=== PATIENT | female | born 1985 | race African-American/Black ===

== ENCOUNTER 2025-03-13 09:23 | Outpatient (REF) | payer OTHER, SELFPAY ==
--- OUTSIDE RECORDS SUMMARY | 2025-03-13 12:25 | XMS_ITS | Patient Health Record ---
Author Organization [facility] Address [address] [place] [address] Care Team Providers Care Flexible Shaft Winder Name Role Phone Zac Cardona Primary Care Provider Reason For Referral No Information Medications Medication SIG (Take, Route, Frequency, Duration) Notes Start Date End Date Status Mirena 20 MCG/24HR Intrauterine Device Intrauterine *please review for potential update for e-prescription and drug interaction check* inserted 07/2011 Active Social History Social History Additional Details Category Social Info Options Details Tobacco Use: Tobacco Use/Smoking Are you a: nonsmoker Plan Of Treatment No Information Insurance Providers Payer Name Payer Address Payer Phone Subscriber Number Group Number Insured Name Patient Relationship to Insured Coverage Start Date Coverage End Date [facility] [address] [place] [address] [id number] AMBROSEMERCEDES HOROWITZ Self - patient is the insured Medical (General) History Medical History History ICD Code HPV HTN ELIN positive Thyroid nodule/goiter Surgical History Surgery Date(Month/Year) Colposcopy-benign 09/2010
[2025-03-13 13:07] LABS: Appearance Urine Clear; Glucose Urine UA Negative (Negative); PH 5.5 (5.0-9.0); Specific Gravity - Urine 1.025 (1.005-1.025); UMIC TRIGGER UACC YES
[2025-03-13 13:53] LABS: Microalbum/Creatinine Ratio Ur 75.9 ug/mg cr (<30)
[2025-03-13 14:07] LABS: MANUAL DIFF FLAG NO
[2025-03-13 14:18] LABS: Hematocrit 37.2 % (37.0-47.0); Hemoglobin 12.7 g/dl (12.0-16.0); Imm Gran Abs Auto 0.01 X10*3/uL (0.00-0.03); Imm Gran Pct Auto 0.1 % (0.0-0.4); Lymphocytes Absolute Auto 1.8 X10*3/uL (1.2-4.9); Mean Corpuscular HGB Conc 34.1 g/dl (31.0-35.0); Mean Corpuscular Hemoglobin 30.1 pg (27.0-33.0); Mean Corpuscular Volume 88.2 fL (80.0-98.0); NRBC Abs Auto 0.000 X10*3/uL (0.0-0.012); NRBC Pct Auto 0.0 /100WBC (0.0-0.2); Platelet Count 393 X10*3/uL (160-400); Red Blood Count 4.22 X10*6/uL (4.20-5.50); White Blood Count 6.8 X10*3/uL (4.8-10.8)
[2025-03-13 18:48] LABS: Alanine Aminotransferase 23 U/L (0-31); Albumin Level 4.9 g/dL (3.5-5.0); Alkaline Phosphatase 69 U/L (39-117); Anion Gap 13 (12-20); Aspartate Amino Transferase 23 U/L (5-31); Blood Urea Nitrogen 10 mg/dL (9-16); Calcium 9.3 mg/dL (8.4-10.2); Carbon Dioxide 27 mmol/L (22-29); Chloride 104 mmol/L (96-108); Cholesterol 174 mg/dL (<200); Estimated Glomerular Filt Rate > 60; HDL Cholesterol 33 mg/dL (>40); Magnesium 2.2 mg/dL (1.6-2.6); Potassium 3.7 mmol/L (3.3-5.1); Sodium 140 mmol/L (135-145); Total Protein 8.0 g/dL (6.5-8.0); Triglycerides 149 mg/dL (<150)
[2025-03-13 19:19] LABS: Folate 12.1 ng/mL (> or = 4.0); Vitamin B12 295 pg/mL (200-900)
[2025-03-14 05:07] LABS: Syphilis Screen Nonreactive (Nonreactive)
[2025-03-14 05:29] LABS: HBS Num1 118.49 mIU/mL (0-7.99); HBsAGNum1 0.61 S/CO (0.00-0.99); HIV Num 1 0.04 S/CO (0.00-0.99); Hepatitis B Surface Antigen Negative (Negative); ~HepC Num1 0.12 S/CO (0.00-0.79); ~Hepatitis B Surface Antibody REACTIVE (Nonreactive); ~Hepatitis C Antibody Nonreactive (Nonreactive)
[2025-03-18 15:12] LABS: VITAMIN D (1,25 OH) D3 76 pg/mL; Vit D (1,25-Dihydroxy) Total 76 pg/mL (18-72); Vitamin D (1,25 OH) D2 <8 pg/mL
== END 2025-03-13 09:24 | disposition home or self-care (01) ==
LOC: HO.HKASLDS 09:23
PROVIDERS: PCP Student in an Organized Health Care Education/Training Program; Visit Provider Student in an Organized Health Care Education/Training Program
DX: I10 Essential (primary) hypertension (principal); E78.5 Hyperlipidemia, unspecified; E11.9 Type 2 diabetes mellitus without complications; E66.811 Obesity, class 1; L83 Acanthosis nigricans; Z23 Encounter for immunization; Z68.33 Body mass index [BMI] 33.0-33.9, adult
CPT/HCPCS: 36415; 80053; 80061; 81001; 82043; 82570; 82607; 82652; 82746; 83036; 83735; 84443; 85025; 86706; 86780; 86803; 87340; 87389; 90471; 90656; 96127

== ENCOUNTER 2025-03-13 09:23 | Outpatient (AMB) | payer OTHER, SELFPAY ==
--- NOTE | 2025-03-13 09:25 | MHC.PC.OV ---
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 Accompanied by: Self / Same As Patient Allergies No Known Allergies Allergy (Verified 03/13/25 09:30) Medication List - Last Reconciled 03/13/25 by Solo Abreu MD atorvastatin (Lipitor) 20 mg PO BEDTIME levonorgestrel (Mirena) intrauterine lisinopril 20 mg PO DAILY metformin 500 mg PO BID Tobacco use date assessed: 03/13/25 Dental Screening Dental Screen Date: 03/13/25 Did you have a dental visit in the last 12 months?: Yes Was dental information given to patient?: Patient has dentist HPI HPI Comments History of Present Illness Details History of Present Illness The patient is a 39-year-old individual presenting to [facility] primary [facility] and for management of hypertension and prediabetes. Type 2 Diabetes: The patient has a history of gestational diabetes during a prior , which persisted after delivery. Recent laboratory results indicated a hemoglobin A1c of 6.2%. The patient previously took metformin and reports it helped with weight loss. There is a family history of diabetes. Essential Hypertension: The patient reports a history of high blood pressure, for which medication was taken after the patient's last child was born, leading to regulation of blood pressure. A medication was prescribed last year, but the patient cannot recall the name, suggesting it might have been lisinopril or hydrochlorothiazide, and is not currently taking it. There is a family history of hypertension. Hyperlipidemia: The patient was previously on a statin medication for cholesterol, possibly atorvastatin, but discontinued it and requires new lab panels. Contraception Management: The patient has had a Mirena IUD in place for four years, reporting no issues and amenorrhea. Surgical History: - Denies any history of surgeries. Medications: - The patient is not currently taking any prescription medications. - The patient has a Mirena IUD, placed 4 years ago. Social History: - Denies smoking. - Denies drinking alcohol. - Denies use of recreational drugs. - Reports exercising frequently. - Obstetric history: The patient has had five pregnancies and has three living children. - Contraception: The patient has a Mirena IUD in place. Family History: - Hypertension - Diabetes Mellitus Diagnostic Results: - Hemoglobin A1c: 6.2% Past Medical History - Prediabetes, with a recent hemoglobin A1c of 6.2%. - History of gestational diabetes. - History of hypertension, previously treated post-. - History of hyperlipidemia, previously treated with a statin. - Obstetric history includes five pregnancies with three living children. - Has a Mirena IUD, placed four years ago. Health Maintenance - Will place a referral for a screening mammogram. - The patient is to follow up in two weeks to review lab results. - Prescriptions will be sent to [facility] pharmacy. [facility] Medical History (Updated 03/13/25 @ 10:01 by Solo Abreu MD) Insulin resistance Acanthosis nigricans Class 1 obesity Diabetes type 2 Hypertension Family History (Updated 03/13/25 @ 09:32 by Christina Jeff CMA) Mother Diabetes HTN (hypertension) Obesity Father Diabetes HTN (hypertension) Obesity Social History Housing: House Patient Tobacco Use Status: Never used Tobacco service: Yes Current occupational status: employed Cognitive needs: No Hearing needs: No Vision needs: Yes (rx glasses) Questionnaire PHQ-9 Over the last 2 weeks, how often have you been bothered by any of the following problems? 1. Little interest or pleasure in doing things: not at all 2. Feeling down, depressed, or hopeless: not at all 3. Trouble falling or staying asleep, or sleeping too much: not at all 4. Feeling tired or having little energy: not at all 5. Poor appetite or overeating: not at all 6. Feeling bad about yourself - or that you are a failure or have let yourself or your family down: not at all 7. Trouble concentrating on things, such as reading the newspaper or watching television: not at all 8. Moving or speaking so slowly that other people could have noticed. Or the opposite - being so fidgety or restless that you have been moving around a lot more than usual: not at all 9. Thoughts that you would be better off or of hurting yourself in some way: not at all Total score: 0 Source: Developed by Drs. Tommie Mercado, Gwendolyn Carvalho, Bart Samuels and colleagues, with an educational pedrito from [employer]. Thrive Questionnaire Date Thrive assessed: 03/13/25 I am a: Patient What is your living situation today?: I have a steady place to live Within the past 12 months, did the food you bought not last and you didn't have the money to get more?: Never true Within the past 12 months, did you worry whether your food would run out before you got money to buy more?: Sometimes True Do you have trouble paying for medicines?: No Do you have trouble getting transportation to medical appointments?: No Do you have trouble paying your heating and electricity bill?: No Do you have trouble taking care of your child, family member or friend?: No Do you have trouble with day-to-day activities such as bathing, preparing meals, shopping, managing finances, etc.?: No Are you currently unemployed and looking for a job?: No Are you interested in more education?: No Please select the resources that you would like help with: None Currently or been in a relationship where the following occur: No concerns reported THRIVE Score: 1 AUDIT C Alcohol Use Questionnaire (AUDIT-C) 1. How often do you have a drink containing alcohol?: Monthly or less 2. How many drinks containing alcohol do you have on a typical day when you are drinking?: 1 or 2 3. How often do you have six or more drinks on one occasion?: Never Total Score: 1 CAPRI-7 AMB Questionnaire CAPRI-7 Date CAPRI - 7 assessed: 03/13/25 Feeling nervous, anxious, or on edge: 0 = Not at all Not being able to stop or control worryin = Not at all Worrying too much about different things: 0 = Not at all Trouble relaxin = Not at all Being so restless that it is hard to sit still: 0 = Not at all Becoming easily annoyed or irritable: 0 = Not at all Feeling afraid as if something awful might happen: 0 = Not at all Total CAPRI-7 score (0-4 normal; 5-9 mild; 10-14 moderate; 15-21 severe): 0 Source: Developed by Drs. Tommie Mercado, Gwendolyn Carvalho, Bart Samuels and colleagues, with an educational pedrito from [employer]. Review of Systems Narrative Review of Systems - Constitutional: Reports good sleep. - Genitourinary: Reports normal urination and bowel movements. - Endocrine: Reports amenorrhea secondary to Mirena IUD. 10-point ROS reviewed and negative except as noted in HPI Physical exam (Primary Care) Vital Signs: Last Vital Signs Temp 98.1 F 03/13/25 09:33 Pulse 78 03/13/25 09:33 BP 174/100 H 03/13/25 09:33 Pulse Ox 100 03/13/25 09:33 Oxygen Delivery Method Room Air 03/13/25 09:33 BMI result Body Mass Index 33.8 Tobacco/Smoking Status: Tobacco use Status Tobacco use date assessed 03/13/25 03/13/25 09:27 Patient Tobacco Use Status Never used Tobacco 03/13/25 09:27 PHQ-9: PHQ-9 Score PHQ-9: Total score 0 03/13/25 09:49 Thrive Assessment: Date of Thrive Assessment Date Thrive assessed 03/13/25 03/13/25 09:27 Currently or been in a relationship where the following occur: No concerns reported Narrative Physical Exam General: Well-appearing, in no acute distress. Vital signs: Within normal limits. HEENT: Normocephalic, atraumatic. PERRLA, EOMI. Conjunctiva clear, sclera anicteric. Oropharynx clear, mucous membranes moist. TMs intact bilaterally. Neck: Supple, no lymphadenopathy, no thyromegaly, no JVD or carotid bruits. Cardiovascular: RRR, normal S1/S2, no murmurs, rubs, or gallops. Peripheral pulses 2+ and symmetric. No edema. Respiratory: Lungs clear to auscultation bilaterally, no wheezes, rales, or rhonchi. Normal effort. Abdomen: Soft, non-tender, non-distended. Normoactive bowel sounds. No hepatosplenomegaly, no masses. MSK: Full range of motion, no joint swelling or deformity. Normal gait. Skin: Warm, dry, intact. No rashes, lesions, or pallor. Some darkening noted, consistent with acanthosis nigricans. Neuro: Alert and oriented x3. Cranial nerves II-XII intact. Strength 5/5 throughout. Sensation intact. Reflexes 2+ symmetric. Normal coordination and gait. Psych: Appropriate mood and affect. Normal judgment and insight. Office Procedures Flu Questionnaire Does the patient have a severe egg allergy?: No Does the patient have severe life threatening allergies?: No Does the patient have a fever or illness today?: No Has the patient ever had Guillain-[place] Syndrome?: No Has the patient ever had any past reaction to a flu shot?: No Results AMB Hemoglobin A1c AMB Hemoglobin A1c 6.2 % Last Edit by Christina Jeff CMA on 03/13/25 09:53 Immunizations Fluarix [id number] (PF) 45 mcg (15 mcg x 3)/0.5 mL IM syringe Performing Provider: Solo Abreu MD Performing Location: [facility] Administered by: Christina Jeff CMA on 03/13/25 09:42 Dose Route Admin Location Dispensed Lot Number Expiration Date NDC Evaporator Repairer 0.5 mL IM Left Deltoid 0.5 mL [id number] 10/16/25 [id number] [employer] VIS Given Date VIS Provided VIS Publication Date 03/13/25 Single Vaccine 24 Eligibility Eligibility Date Funding Source Not [facility] Eligible 03/13/25 Private Coding Level of Care Code New Pt Level 4 (84127) Diagnoses Hypertension I10 Diabetes type 2 E11.9 Class 1 obesity E66.811 Acanthosis nigricans L83 Insulin resistance E88.819 Assessment & Plan Assessment & Plan (1) Hypertension: Code(s): I10 - Essential (primary) hypertension Category: Medical (2) Diabetes type 2: Code(s): E11.9 - Type 2 diabetes mellitus without complications Category: Medical (3) Class 1 obesity: Code(s): E66.811 - Obesity, class 1 Category: Medical (4) Acanthosis nigricans: Code(s): L83 - Acanthosis nigricans Category: Medical (5) Insulin resistance: Code(s): E88.819 - Insulin resistance, unspecified Category: Medical Plan Consent The patient verbally consented to the proposed treatment plan, including new medications, laboratory testing, and specialist referrals, after a discussion of the rationale and goals of care. Patient was informed and verbally consented to the use of an ambient scribe for clinic note documentation during this visit. Plan 1. Type 2 Diabetes - Will initiate metformin 500 mg to be taken twice daily. - Will order laboratory studies including a CBC, CMP, magnesium, urinalysis for protein, a thyroid panel, hepatitis B & C, HIV, a lipid panel, vitamin B12, folate, and vitamin D. - Discussed monitoring vitamin B12 levels as they can decrease with metformin use. - A referral to podiatry will be placed for an annual foot exam. - The patient confirms a recent ophthalmology exam was normal. 2. Essential Hypertension - Will prescribe lisinopril 20 mg once daily. 3. Hyperlipidemia - Explained that patients with diabetes or prediabetes should be on a statin for cardiovascular protection. - Will prescribe atorvastatin 20 mg once daily. - Noted the anti-inflammatory benefits and its role in reducing cardiac risk factors. Discussion Notes I discussed with the patient that the hemoglobin A1c of 6.2 signifies prediabetes, increasing the risk for type 2 diabetes, especially given the history of gestational diabetes. We agreed to initiate metformin, which the patient tolerated well in the past and found effective for weight loss. I explained the guideline-based recommendation for starting a statin medication (atorvastatin) in patients with prediabetes to lower cardiovascular risk, regardless of current cholesterol levels. We also decided to restart medication for hypertension with lisinopril. I outlined the plan for comprehensive lab work to establish a baseline and monitor for any medication side effects, such as vitamin B12 deficiency with metformin. We discussed the importance of preventative care, and I will place referrals for a mammogram and a podiatry foot exam. The patient agreed with the plan and will return in two weeks to review the results. Patient Instructions - Take metformin 500 mg, one pill by mouth twice per day, for your blood sugar. - Take lisinopril 20 mg, one pill by mouth once per day, for your blood pressure. - Take atorvastatin 20 mg, one pill by mouth once per day, to protect your heart. - Please go to the lab to have blood and urine tests completed. - You will be referred for a mammogram and a podiatry (foot doctor) appointment for your annual exams. - Your prescriptions have been sent to [facility]. - Please schedule a follow-up appointment in two weeks to review your lab results. Medical Decision Making The patient is a 39-year-old individual presenting to [facility] with multiple metabolic concerns. The diagnosis of prediabetes is confirmed by a hemoglobin A1c of 6.2%, and is complicated by a history of gestational diabetes, placing the patient at high risk for progression to type 2 diabetes. Physical exam findings of acanthosis nigricans are consistent with insulin resistance. Initiation of metformin is indicated for glycemic control, and the patient has tolerated it well previously. Due to the prediabetes diagnosis, initiation of a low-dose statin (atorvastatin) is recommended for primary cardiovascular prevention per clinical guidelines. The patient's history of hypertension warrants restarting antihypertensive therapy, and lisinopril was chosen. Comprehensive baseline labs will assess renal and hepatic function prior to medication titration and screen for comorbidities and potential medication side effects, such as B12 deficiency from metformin. Preventative care measures, including referrals for a mammogram and a diabetic foot exam, are being initiated to provide comprehensive care. A follow-up in two weeks will allow for review of laboratory results and assessment of the patient's response to the new therapeutic regimen. Total Time Statement 30 min Total time spent caring for the patient today includes pre-visit chart review, documentation, review of laboratory and diagnostic imaging results, medication reconciliation, medically necessary evaluation, counseling on diagnoses, care coordination, ordering appropriate tests and medications, review of tests performed by other providers, reporting test results to the patient, and communication with other healthcare providers. Orders: Orders Influenza [id number] Immunization Today Z23 - Encounter for immunization AMB Hemoglobin A1c Today Z13.9 - Encounter for screening, unspecified Microalbumin, Random (w Creat) Today Z13.9 - Encounter for screening, unspecified Hepatitis B Surface Antigen Today Z13.9 - Encounter for screening, unspecified Syphilis Screen Today Z13.9 - Encounter for screening, unspecified TSH reflex Free T4 Today Z13.9 - Encounter for screening, unspecified HIV Ab/Ag Today Z13.9 - Encounter for screening, unspecified Lipid Panel Today Z13.9 - Encounter for screening, unspecified Vitamin B12 and Folate Today Z13.9 - Encounter for screening, unspecified Magnesium Today Z13.9 - Encounter for screening, unspecified Vitamin D 1,25 dihydroxy Today Z13.9 - Encounter for screening, unspecified Hepatitis B Surface Antibody Today Z13.9 - Encounter for screening, unspecified Complete Blood Count Auto Diff Today Z13.9 - Encounter for screening, unspecified Comprehensive Met. Panel Today Z13.9 - Encounter for screening, unspecified Hepatitis C Antibody Today Z13.9 - Encounter for screening, unspecified UA CC w/rflx Micro + Cult Today Z13.9 - Encounter for screening, unspecified Hemoglobin A1c Today Z13.9 - Encounter for screening, unspecified MM screening mammo BI Today Z12.31 - Encounter for screening mammogram for malignant neoplasm of breast Referrals Podiatry Referral E11.9 - Type 2 diabetes mellitus without complications, Z13.9 - Encounter for screening, unspecified Medications: New metformin 500 mg PO BID 180 tabs 0RF atorvastatin (Lipitor) 20 mg PO BEDTIME 90 tabs 0RF lisinopril 20 mg PO DAILY 30 tabs 0RF I10 - Essential (primary) hypertension
[2025-03-13 09:33] VITALS: BP 174/100; PULSE 78; TEMP 36.7; O2SAT 100; BMI 33.8
--- OUTSIDE RECORDS SUMMARY | 2025-03-13 10:42 | XMS_ITS | Clinical Summary ---
Author Organization [employer] Formerly [facility] Address [address] [address] Phone Care Team Providers Care Shift Mechanic Name Role Phone Unavailable Primary Care Provider Unavailabl e Allergies No known active allergies Medications cholecalciferol 1,000 unit tablet Take 1,000 Units by mouth daily. Active ascorbic acid (VITAMIN C ORAL) Take by mouth. Active metFORMIN (GLUCOPHAGE) 500 MG tabletIndications:T ype 2 diabetes mellitus without complication, without long-term current use of insulin TAKE 1 TABLET(500 MG) BY MOUTH TWICE DAILY WITH MEALS 180 tablet 3 4 Active atorvastatin (LIPITOR) 20 MG tabletIndications:H yperlipidemia, unspecified hyperlipidemia type TAKE 1 TABLET(20 MG) BY MOUTH DAILY 90 tablet 3 4 Active Active Problems Problem Noted Date Diagnosed Date Diet controlled gestational diabetes mellitus (GDM) in third trimester 09/03/2020 Assessment & Plan (09/10/2020 1:37 PM EDT): ~34 yr old female with gestation diabetes in her last trimester . She is doing well with diet and home glucose monitoring. No indication to start insulin at this time. plan:~To continue diet. Discussed the risk of GDM in further pregnancies and developing type 2 DM. Advised to continue diet even after delivery. To see her in 2 weeks. Assessment & Plan (09/03/2020 1:12 PM EDT): ~34 yr old female with gestation diabetes in her last trimester . She is doing well with diet and home glucose monitoring. No indication to start insulin at this time. plan:~To continue diet. Refer to RD. To bring readings and meter at all visits. Obtain HbA1c today. Discussed the risk of GDM in further pregnancies and developing type 2 DM. Advised to continue diet even after delivery. To see her in 1 week. Vitamin D deficiency 07/21/2019 Prediabetes 01/03/2019 Assessment & Plan (01/05/2023 8:58 AM EDT): Monitors her blood glucose regularly and has elevated readings. Had gestational diabetes in the past and she was prediabetic before conceiving and after delivery. Had tried discontinuing sugar completely, without benefits. Father and grandmother had diabetes. Ordered Hemoglobin A1c. Advised taking a healthy, low carb and low fat diet and exercise. Family history of diabetes mellitus 11/07/2018 Abnormal cervical Papanicolaou smear 05/16/2015 Overview (05/16/2015): Her pap smear history is as follows: 09/01/2010 ASC-[facility] (Outside [facility]) 01/23/2015 Normal (Outside [facility]) Her HPV history is as follows: 01/23/2015 pos type 16 (Outside [facility]) Further evaluation and management have been as follows: 03/25/2015 biopsy of cervix SILLG ([facility]) SILHG @ 6 (Outside [facility]) 03/25/2015 endocervical curettage Teresa Diff to Grade ([facility]) SIL[facility] (Outside [facility]) Contraception management 01/23/2015 Encounter for general adult medical examination with abnormal findings 01/23/2015 Assessment & Plan (01/07/2024 6:34 AM EDT): Cervical cancer screening: Up-to-date. Had a normal Pap smear in 09/[address] Marquez. Advised her to obtain records for me to review. Breast cancer screening: She has her mammograms scheduled for tomorrow. Depression screening: No depression symptoms or mood changes. Immunizations: Ordered to administer the Tdap, influenza and COVID-19 vaccines today. Exercise: She does a lot of walking at work and goes for walks in her neighborhood on weekends. She mentions that her job involves physical activity. Family history: No changes. Reviewed. Assessment & Plan (01/05/2023 8:58 AM EDT): Family history: No recent change in family history. Pap smear screening: Due. Her lead nurse retired. Ophthalmology screening: Due. 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 Immunization: Due for influenza vaccine. Ordered and administered Influenza Vaccine (2yr up) Quadrivalent MDCK w/Preservatives IM during today's visit. Screening labs:Due for screening labs. Ordered as below: Human papilloma virus (HPV) infection 01/23/2014 Obesity 09/01/2010 Elevated antinuclear antibody (ELIN) level 2009 Benign essential hypertension 02/11/2009 Screening for malignant neoplasm of cervix 02/11 Assessment & Plan (01/05/2023 8:58 AM EDT): She's due for a pap smear screening. Ambulatory referral to External [employer]VEL[employer] FOLDING MACHINE ADJUSTER-provided. Thyroid nodule 11/30/2008 Assessment & Plan (09/10/2020 1:33 PM EDT): Stable over 10 years. May follow clinically. No regular US is needed unless change. Free T4 is low at 0.7 with normal TSH (08/2020). Will follow free T4 by direct dialysis. Assessment & Plan (09/03/2020 1:07 PM EDT): Stable over 10 years. May follow clinically. No regular US is needed unless change. Resolved Problems Problem Noted Date Diagnosed Date Resolved Date Normal pelvic exam 11/07/2018 9 Other microscopic hematuria 03/05/2009 07/21/2019 Thyroid cyst 05/04/2008 09/03/2020 Goiter 10/24/2007 09/03/2020 Immunizations Immunization Administration Dates Next Due COVID-19 (Pre-02/08) Moderna Vaccine, mRNA, PF 03/21/2021,07/15/2020,06/18/2020 COVID-19 Pfizer Comirnaty Vaccine 12+ 01/06/2024 INFLUENZA TRIVALENT MDCK w/PRESERVATIVE IM 01/06/2024 INFLUENZA, SPLIT VIRUS, TRIV ALENT W/ PRESERVATIVE IM 02/05/2016,01/23/2015,01/16/2014,2012 Influenza Quadrivalent MDCK w/Preservative IM 01/04/2023,01/01/2022,01/03/2021 Influenza Quadrivalent Prese rvative Free IM 01/07/2019,12/27/2017,02/02/2017 Influenza Quadrivalent w/ Preservative IM 02/02/2017 Influenza, Unspecified Formulation 01/08/2020, Tdap 01/06/2024,12/06/2012 Family History Medical History Relation Comments Multiple sclerosis Brother Diabetes Father Hypertension Father Colon cancer Maternal Grandmother Diabetes mellitus Mother FH: Diabetes m ellitus Hypertension Mother FH: Hypertension Hyperlipidemia Sister Relation Status Comments Brother Father Maternal Grandmother Mother Sister Social History Tobacco Use Types Packs/Day Years Used Date Smoking Tobacco: Never Smokeless Tobacco: Never Alcohol Use Standard Drinks/Week Comments No 0 (1 standard drink = 0.6 oz pur e alcohol) Child or Family Care Answer Date Record ed Do you have problems with on e of the following making it difficult for you to work, study, or receive health care? No 10/02/2023 Education Answer Date Recorded Are you interested in help w ith more adult education (for example, completing high school, GED, job training, learning the Hebrew language, technical skills, or developing parenting skills)? No 10/02/2023 Are you concerned about learning? Not on file 10/02/2023 No 10/02/2023 Yes 10/02/2023 Food Answer Date Recorded Within the past 6 months we worried whether our food would run out before we got money to buy more. Never True 10/02/2023 Within the past 6 months the food we bought just didn't last and we didn't have enough money to get more. Never True Residential Stability Answer Date Recor ded What is your housing situation today? I have james sing 10/02/2023 How many times have you move d in the past 12 months? Zero (I did not move) 10/02/2023 Paying for Meds Answer Date Recorded Do you have trouble paying for medicines? No 10/02/2023 Paying Utility Bills Answer Date Record ed Do you have trouble paying your heating or elect ricity bill? No 10/02/2023 Transportation Answer Date Recorded Has the lack of transportati on kept you from medical appointments or from getting medications? No 10/02/2023 Unemployment Answer Date Recorded Are you currently unemployed or working on a part-time or temporary basis, and looking for work? No 10/02/2023 Digital Access Answer Date Recorded No 10/02/2023 Yes 10/02/2023 Do you have reliable internet access at home? Ye s 10/02/2023 Do you have a device (e.g., phone, tablet, computer) with a working camera? Yes 10/02/2023 Intimate Partner Violence Answer Date R ecorded Denied Basic Needs Not on file 12/30/2023 In the past 12 months have y ou been in a relationship with a person who hurts, threatens, or tries to control you? No 12/30/2023 Worried food would run out Not on file 12/29 In the past 12 months have y ou been in a relationship with a person who hurts, threatens, or tries to control you? No 12/30/2023 Comments No Sex and Gender Information Value Date Recorded Sex Assigned at Female 12/13/2019 4:54 PM EDT Legal Sex Female 4:11 PM EST Gender Identity Female 12/13/2019 4:54 PM EDT Sexual Orientation Choose not to disclose 2019 4:54 PM EDT Sexual Orientation Straight 12/13/2019 4: 54 PM EDT Last Filed Vital Signs Vital Sign Reading Time Taken Comments Blood Pressure 124/86 01/06/2024 8:18 AM EDT Pulse 83 01/06/2024 8:18 AM EDT Temperature 37.3 C (99.2 F) 10/25/2022 9:39 AM EDT Respiratory Rate 18 12/30/2021 7:42 AM EDT Oxygen Saturation 99% 01/06/2024 8:18 AM EDT Inhaled Oxygen Concentration - - Weight 95.6 kg (210 lb 12.8 oz) 01/06/2024 8:18 AM EDT Height 165.1 cm (5' 5 ) 01/06/2024 8:18 AM EDT Body Mass Index 35.08 01/06/2024 8:18 AM EDT Plan of Treatment Health Maintenance Due Date Last Done Comments PAP SMEAR 01/12/2019 01/13/2016, 01/13/2016 BLOOD PRESSURE 07/05/2024 01/06/2024 INFLUENZA VACCINE (#1) 2024 , 01/04/2023, 01/01/2022, Additional history exists COVID-19 VACCINE ( season) 2024 01/06/2024, 03/21/2021, 07/15/2020, Additional history exists DEPRESSION SCREENING 12/29/2024 12/30/2023, 05/20/19 16 CREATININE LEVEL 02/27/2025 02/28/2024, 10/2023, 08/06/2022, Additional history exists MAMMOGRAM 01/12/2026 01/13/2024 SCREENING FOR DIABETES 02/27/2027 02/28/2024, 2023 Adult Td,Tdap Booster 01/05/2034 01/06/2024, 013 HEPATITIS C SCREENING Completed 12/29/2018, 019 HIV ONE-TIME SCREENING (18-65 YEARS) Completed 12/29/2018 SMOKING STATUS SCREENING (Once After 26 Yrs) Completed 12/30/2021 HEPATITIS A VACCINES Aged Out No long er eligible based on patient's age to complete this topic HIB VACCINES Aged Out No longer eligi ble based on patient's age to complete this topic MENINGOCOCCAL VACCINES (ACWY) Aged Out No longer eligible based on patient's age to complete this topic MENINGOCOCCAL VACCINES (B) Aged Out N o longer eligible based on patient's age to complete this topic PNEUMOCOCCAL VACCINES (0-49 years) Aged Out No longer eligible based on patient's age to complete this topic Medical Devices Not on file Procedures Procedure Name Priority Date/Time Associated Diagnosis Comments [facility] Routine 02/28/2024 8:42 AM EST Elevated BP without diagnosis of hypertension BI MAMMOGRAM SCREENING WITH TOMOSYNTHESIS WITH CAD (BILATERAL) 01/13/2024 10:38 AM EDT HEPATITIS C ANTIBODY, QUALITATIVE Routine 12/29/2018 7:40 AM EDT Routine screening for STI (sexually transmitted infection) PAP TEST Routine 01/13/2016 12:00 AM EDT from Last 3 Months or Most Recently Relevant to Health Maintenance Results * [facility] (02/28/2024 8:42 AM EST) WBC 7.15 4.00 - 11.00 K/uL [facility] RBC 4.19 4.00 - 5.20 M/uL [facility] HGB 12.5 12.0 - 16.0 g/dL [facility] HCT 37.3 36.0 - 46.0 % [facility] PLT 343 150 - 450 K/uL [facility] MCV 89.0 80.0 - 100.[address] [facility] MCH 29.8 27.0 - 31.[address] [facility] MCHC 33.5 32.0 - 36.0 g/dL [facility] RDW 12.6 11.5 - 14.5 % [facility] MPV 10.3 8.4 - 12.[address] [facility] NRBC 0.00 0.00 /[address] [facility] ABSOLUTE NRBC 0.00 0.00 K/uL [facility] DIFF METHOD Auto MASS GEN [facility] NEUTS 65.7 48.0 - 76.0 % [facility] LYMPHS 26.7 18.0 - 41.0 % [facility] MONOS 6.3 4.0 - 11.0 % [facility] EOS 0.7 0.0 - 5.0 % [facility] BASOS 0.3 0.0 - 1.5 % [facility] % IMMATURE GRANS 0.3 0.0 - 0.9 % [facility] ABSOLUTE NEUTS 4.70 1.92 - 7.60 K/uL [facility] ABSOLUTE LYMPHS 1.91 0.72 - 4.10 K/uL [facility] ABSOLUTE MONOS 0.45 0.16 - 1.10 K/uL [facility] ABSOLUTE EOS 0.05 0.00 - 0.50 K/uL [facility] ABSOLUTE BASOS 0.02 0.00 - 0.15 K/uL [facility] ABS IMMATURE GRANS 0.02 0.00 - 0.09 K/uL [facility] SODIUM 138 136 - 145 mmol/L [facility] POTASSIUM 3.9 3.5 - 5.1 mmol/L [facility] CHLORIDE 107 98 - 110 mmol/L [facility] CO2 28 21 - 32 mmol/L [facility] BUN 8 7 - 18 mg/dL [facility] CREATININE 0.70 0.5 - 1.3 mg/dL [facility] GLUCOSE 106 74 - 106 mg/dL [facility] ALBUMIN 4.2 3.0 - 4.5 g/dL [facility] TOTAL PROTEIN 7.8 6.4 - 8.2 g/dL [facility] CALCIUM 8.9 8.5 - 10.1 mg/dL [facility] ALKALINE PHOSPHATASE 68 46 - 130 U/L [facility] TOTAL BILIRUBIN 0.5 0.2 - 1.1 mg/dL [facility] AST 16 15 - 37 U/L [facility] ALT 25 13 - 61 U/L [facility] EGFR 112 >59 mL/min/1.7 3m2 [facility] Comment:Estimated glomerular filtration rate calculated using the CKD-EPI refit equation. TSH 1.52 0.51 - 6.27 uIU/mL [facility] Comment: Euthyroid range 0.51-6.270 muIU/mL. Values above 6.270 muIU/mL suggust hypothyroid states. Values between 0.01-0.51 muIU/mL may be on a thyroidal or non thyroidal basis and require further evaluation. Values above 6.270 muIU/mL suggust hypothyroid states. Blood 02/28/2024 8:42 AM EST 02/28/2024 8:50 AM EST us Zac Cardona MD LAB BLOOD ORDERABLES Final R esult Performing Organization Address City/State/[facility] Co de Phone Number [id number] [place] [address] * Mammogram Screening With Tomosynthesis With CAD (Bilateral) (01/13/2024 10:38 AM EDT) Anatomical Region Laterality Modality Breast Left, Breast Right, Breast Bilateral Bila teral Breast Screening 01/13/2024 10:3 8 AM EDT Narrative 01/13/2024 10:42 AM EDT [facility] [address] [place] [address] Mammography Report Signed Patient: Mercedes Madrid MR#: [id number] : 1985 Acct:[id number] Age/Sex: 38 / F ADM Date: 01/07/24 Loc: MAMMO.[facility] Attending Dr: Zac Cardona MD Ordering Physician: Zac Cardona MD Results: 1 BIRA D 1 Date of Service: 01/07/24 Follow Up: 12 MONTH FOLLOW UP Procedure(s): MM tomosynthesis screening BI Accession Number(s): [id number] cc: Zac Cardona MD [facility] Patient name: Mercedes Madrid Exam: MM tomosynthesis screening BI Technique: Screening mammogram with bilateral digital breast tomosynthesis and R2 CAD review. Procedure Date Time: 01/07/2024 9:17:14 AM Indication: Base Line for routine screening. Comparison: Comparison is made to patient's prior imaging. BILATERAL MAMMOGRAM: Density: The breasts are heterogeneously dense, which may obscure small masses. Masses: No suspicious masses. Calcifications: No suspicious calcifications. Architectural Distortion: None. Asymmetry: No suspicious asymmetry. IMPRESSION: No mammographic evidence of malignancy. BIRADS: 1 - NEGATIVE ONE YEAR FOLLOW-UP NORMAL LETTER SENT TO PATIENT Patient to receive Density letter. Signed by Derek Amado MD on 01/13/2024 10:39 AM. Dictated By: Derek Amado MD Signed By: 01/13/24 1039 DD/ 1038 TD/TT: Corporate Sales Representative: BRAYAN Confidentiality Notice: The information contained in this facsimile may be privileged and confidential. It is intended only for the use of the individual or entity to whom it was sent. If the recipient of this transmittal is not the intended recipient, employee, or agent responsible to deliver it to the intended recipient, any dissemination, distribution, or copying of this communication is strictly prohibited. If you have received this communication in error, please notify us immediately by telephone, and return the original message to us at the above address via [employer]. Procedure Note Derek Amado MD - 01/13/2024 [facility] [address] [place] [address] Mammography Report Signed Patient: Mercedes MadridMR#: [id number] : 1985Acct:[id number] Age/Sex: 38 / FADM Date: 01/07/24 Loc: MAMMO.[facility] Attending Dr: Zac Cardona MD Ordering Physician: Zac Cardonaesults: 1 BIRA D 1 Date of Service: 01/07/24Follow Up: 12 MONTH FOLLOW UP Procedure(s): MM tomosynthesis screening BI Accession Number(s): [id number] cc: Zac Cardona MD [facility] Patient name: Mercedes Madrid Exam: MM tomosynthesis screening BI Technique: Screening mammogram with bilateral digital breasttomosynthesis and R2 CAD review. Procedure Date Time: 01/07/2024 9:17:14 AM Indication: Base Line for routine screening. Comparison: Comparison is made to patient's prior imaging. BILATERAL MAMMOGRAM: Density: The breasts are heterogeneously dense, which may obscure smallmasses. Masses: No suspicious masses. Calcifications: No suspicious calcifications. Architectural Distortion: None. Asymmetry: No suspicious asymmetry. IMPRESSION: No mammographic evidence of malignancy. BIRADS: 1 - NEGATIVE ONE YEAR FOLLOW-UP NORMAL LETTER SENT TO PATIENT Patient to receive Density letter. Signed by Derek Amado MD on 01/13/2024 10:39 AM. Dictated By: Derek Amado MD Signed By:01/13/24 1039 DD/ 1038 TD/TT: Corporate Sales Representative: BRAYAN Confidentiality Notice: The information contained in this facsimile may beprivileged and confidential. It is intended only for the use of the individual or entityto whom it was sent. If the recipient of this transmittal is not the intended recipient, employee,or agent responsible to deliver it to the intended recipient, any dissemination, distribution, orcopying of this communication is strictly prohibited. If you have received thiscommunication in error, please notify us immediately by telephone, and return the original message to usat the above address via [employer]. us Zac Cardona MD IMG MG EXAMS Final Result * Hepatitis C antibody, qualitative (12/29/2018 7:40 AM EDT) HCV ANTIBODY Non-Reacti ve Non-Reacti ve [facility] Blood 12/29/2018 7:40 AM EDT 12/29/2018 7:48 AM EDT us Janessa Whatley PA-C LAB BLOOD BKR ORDERA BLES Final Result [facility] [id number] [place] [address] * (ABNORMAL) Pap Smear (01/13/2016 12:00 AM EDT) 01/13/2016 01/14/2016 Narrative [facility] - 02/06/2016 9:52 PM EDT CASE: [id number] PATIENT: MERCEDES YATES [facility] Department of Pathology [address] [place] [address] CLIA License No.: [id number] Insurance Specialist: Dr. Acosta Segundo Physician: ARIANA ARELLANO M.D. Procedure Date: 01/13/2016 Corporate Counselor: LEANNE Keith (ASCP) Pathologist: Miley Han M.D. FLANGE MACHINE OPERATOR Molecular Addendum THINPREP PAP TEST, CERVICAL FINAL CYTOLOGIC INTERPRETATION SPECIMEN ADEQUACY: Satisfactory for evaluation; transformation zone present. INTERPRETATION: NEGATIVE FOR INTRAEPITHELIAL LESION OR MALIGNANCY. Reactive changes. PENDING TESTS: Testing for HPV has been initiated, and results will be reported as an Addendum. AUTOMATED REVIEW: This specimen was prescreened using the ThinPrep Imaging System. CLINICAL DATA LMP: 03.06.15; Post- TOTAL SLIDES 1 PROCEDURES Diagnostic ThinPrep with Auto Pre-Screen - [facility] 1 Routine (screening) ThinPrep - professional charge order 1 By his/her signature below, the senior physician certifies that he/she personally conducted a microscopic examination of the described specimen(s) and rendered or confirmed the diagnosis (es) related thereto. Final Diagnosis by Miley Han M.D., Electronically signed on Sunday January 24, 2016 at 06:58:27PM ADDENDUM HPV TEST: Negative for messenger RNA (mRNA) of the high-risk human papillomavirus (HPV) types 16, 18, 31, 33, 35, 39, 45, 51, 52, 56, 58, 59, 66, and 68 by [employer] HPV assay. Final Diagnosis by Miley Han M.D., on Sunday January 24, 2016 at 06:58:27PM HPV Addendum by [place] M.D., Ph.D., Electronically signed on January at 09:51:38PM us Ariana Arellano MD, MPH CYTOLOGY ORDERABLES Edited Result - Final [facility] [address] [place] [id number] from Last 3 Months or Most Recently Relevant to Health Maintenance Additional Source Comments The information contained in this document represents components of the legal health record. It is not the complete legal health record.[facility]
== END 2025-03-13 10:02 | disposition home or self-care (01) ==
LOC: HO.HMCFMS 09:24
PROVIDERS: PCP Student in an Organized Health Care Education/Training Program; Visit Provider Student in an Organized Health Care Education/Training Program
DX: I10 Essential (primary) hypertension (principal); E11.9 Type 2 diabetes mellitus without complications; E66.811 Obesity, class 1; L83 Acanthosis nigricans; E88.819 Insulin resistance, unspecified; Z23 Encounter for immunization

== ENCOUNTER 2025-03-29 10:34 | Outpatient (AMB) | payer OTHER, SELFPAY ==
[2025-03-29 10:37] VITALS: BP 171/90; PULSE 75; RESP 16; TEMP 36.6; O2SAT 100; BMI 34.0
--- NOTE | 2025-03-29 10:37 | MHC.PC.OV ---
Vital Signs 03/29/25 10:37 Height 5 ft 5.43 in Weight 207 lb 2 oz BMI 34.0 BP 171/90 H Blood Pressure Location Lt brachial Position Sitting Respiration 16 Pulse 75 Pulse Source Pulse Oximeter Temp 97.9 F Temp Source Oral Pulse Oximetry (%) 100 Oxygen Delivery Method Room Air Intake Visit Reasons: 2 week follow up Accompanied by: Self / Same As Patient Allergies No Known Allergies Allergy (Verified 03/29/25 10:38) Medication List - Last Reconciled 03/29/25 by Solo Abreu MD atorvastatin (Lipitor) 20 mg PO BEDTIME levonorgestrel (Mirena) intrauterine lisinopril 20 mg PO DAILY metformin 500 mg PO BID Tobacco use date assessed: 03/29/25 Dental Screening Dental Screen Date: 03/29/25 Did you have a dental visit in the last 12 months?: Yes HPI HPI Comments History of Present Illness Details History of Present Illness The patient is a 39 year old female presenting for a follow-up visit to review laboratory results. Type 2 Diabetes Mellitus: The patient has a diagnosis of type 2 diabetes mellitus and is currently taking metformin 500 mg twice daily. Microalbuminuria: The patient has known microalbuminuria and is taking lisinopril for kidney protection. Her recent urinalysis continues to show microalbuminuria. Medications: - Metformin 500 mg twice daily for type 2 diabetes mellitus. - Lisinopril for kidney protection. Diagnostic Results: - Complete Blood Count (CBC): White blood cells, red blood cells, hemoglobin, hematocrit, and platelets were normal. - Comprehensive Metabolic Panel (CMP): Sodium, potassium, calcium, magnesium, and renal function were normal, with no signs of acute or chronic kidney damage. - Glucose: 128 mg/dL. - Hemoglobin A1c: 6.3%, indicative of prediabetes. - Liver Function Tests: Normal. - Lipid Panel (non-fasting): Triglycerides and total cholesterol were normal; LDL was 112 mg/dL. - Vitamin D: Normal. - Folate: Normal. - Thyroid Function Tests: Normal. - Urinalysis: Positive for microalbuminuria. - Infectious Disease Panel: Negative for syphilis, hepatitis B, hepatitis C, and HIV. Past Medical History - Type 2 Diabetes Mellitus, controlled. - Microalbuminuria. Health Maintenance - Discussed lifestyle and dietary modifications for tighter glucose control. - Patient has been screened for syphilis, hepatitis B, hepatitis C, and HIV, all of which were negative. [facility] Medical History (Updated 03/29/25 @ 22:09 by Solo Abreu MD) Hyperlipidemia Microalbuminuria Insulin resistance Acanthosis nigricans Class 1 obesity Diabetes type 2 Hypertension Family History Mother Diabetes HTN (hypertension) Obesity Father Diabetes HTN (hypertension) Obesity Social History Housing: House Patient Tobacco Use Status: Never used Tobacco e-Cigarette/Vaping Use: Never Used service: Yes Current occupational status: employed Cognitive needs: No Hearing needs: No Vision needs: Yes (rx glasses) Questionnaire PHQ-9 Over the last 2 weeks, how often have you been bothered by any of the following problems? 1. Little interest or pleasure in doing things: not at all 2. Feeling down, depressed, or hopeless: not at all 3. Trouble falling or staying asleep, or sleeping too much: not at all 4. Feeling tired or having little energy: not at all 5. Poor appetite or overeating: not at all 6. Feeling bad about yourself - or that you are a failure or have let yourself or your family down: not at all 7. Trouble concentrating on things, such as reading the newspaper or watching television: not at all 8. Moving or speaking so slowly that other people could have noticed. Or the opposite - being so fidgety or restless that you have been moving around a lot more than usual: not at all 9. Thoughts that you would be better off or of hurting yourself in some way: not at all Total score: 0 Depression Screening Interpretation: Negative Depression Screening Done: Yes Source: Developed by Drs. Tommie Mercado, Gwendolyn Carvalho, Bart Samuels and colleagues, with an educational pedrito from [employer]. Thrive Questionnaire Date Thrive assessed: 03/29/25 I am a: Patient What is your living situation today?: I have a steady place to live Within the past 12 months, did the food you bought not last and you didn't have the money to get more?: Never true Within the past 12 months, did you worry whether your food would run out before you got money to buy more?: Sometimes True Do you have trouble paying for medicines?: No Do you have trouble getting transportation to medical appointments?: No Do you have trouble paying your heating and electricity bill?: No Do you have trouble taking care of your child, family member or friend?: No Do you have trouble with day-to-day activities such as bathing, preparing meals, shopping, managing finances, etc.?: No Are you currently unemployed and looking for a job?: No Are you interested in more education?: No Please select the resources that you would like help with: None Currently or been in a relationship where the following occur: No concerns reported THRIVE Score: 1 AUDIT C Alcohol Use Questionnaire (AUDIT-C) 1. How often do you have a drink containing alcohol?: Monthly or less 2. How many drinks containing alcohol do you have on a typical day when you are drinking?: 1 or 2 3. How often do you have six or more drinks on one occasion?: Never Total Score: 1 CAPRI-7 AMB Questionnaire CAPRI-7 Date CAPRI - 7 assessed: 03/29/25 Feeling nervous, anxious, or on edge: 0 = Not at all Not being able to stop or control worryin = Not at all Worrying too much about different things: 0 = Not at all Trouble relaxin = Not at all Being so restless that it is hard to sit still: 0 = Not at all Becoming easily annoyed or irritable: 0 = Not at all Feeling afraid as if something awful might happen: 0 = Not at all Total CAPRI-7 score (0-4 normal; 5-9 mild; 10-14 moderate; 15-21 severe): 0 Source: Developed by Drs. Tommie Mercado, Gwendolyn Carvalho, Bart Samuels and colleagues, with an educational pedriot from [employer]. Review of Systems Narrative Review of Systems 10-point ROS reviewed and negative except as noted in HPI Physical exam (Primary Care) Vital Signs: Last Vital Signs Temp 97.9 F 03/29/25 10:37 Pulse 75 03/29/25 10:37 Resp 16 03/29/25 10:37 BP 171/90 H 03/29/25 10:37 Pulse Ox 100 03/29/25 10:37 Oxygen Delivery Method Room Air 03/29/25 10:37 BMI result Body Mass Index 34.0 Tobacco/Smoking Status: Tobacco use Status Tobacco use date assessed 03/29/25 03/29/25 10:39 Patient Tobacco Use Status Never used Tobacco 03/29/25 10:39 e-Cigarette/Vaping Use Never Used 03/29/25 10:39 PHQ-9: PHQ-9 Score PHQ-9: Total score 0 03/29/25 11:37 Depression Screening Interpretation: Negative Thrive Assessment: Date of Thrive Assessment Date Thrive assessed 03/29/25 03/29/25 10:39 Currently or been in a relationship where the following occur: No concerns reported Narrative Physical Exam General: Well-appearing, in no acute distress. Vital signs: Within normal limits. HEENT: Normocephalic, atraumatic. PERRLA, EOMI. Conjunctiva clear, sclera anicteric. Oropharynx clear, mucous membranes moist. TMs intact bilaterally. Neck: Supple, no lymphadenopathy, no thyromegaly, no JVD or carotid bruits. Cardiovascular: RRR, normal S1/S2, no murmurs, rubs, or gallops. Peripheral pulses 2+ and symmetric. No edema. Respiratory: Lungs clear to auscultation bilaterally, no wheezes, rales, or rhonchi. Normal effort. Abdomen: Soft, non-tender, non-distended. Normoactive bowel sounds. No hepatosplenomegaly, no masses. MSK: Full range of motion, no joint swelling or deformity. Normal gait. Skin: Warm, dry, intact. No rashes, lesions, or pallor. Neuro: Alert and oriented x3. Cranial nerves II-XII intact. Strength 5/5 throughout. Sensation intact. Reflexes 2+ symmetric. Normal coordination and gait. Psych: Appropriate mood and affect. Normal judgment and insight. Office Procedures Flu Questionnaire Does the patient have a severe egg allergy?: No Does the patient have severe life threatening allergies?: No Does the patient have a fever or illness today?: No Has the patient ever had Guillain-[place] Syndrome?: No Has the patient ever had any past reaction to a flu shot?: No Immunizations Fluarix [id number] (PF) 45 mcg (15 mcg x 3)/0.5 mL IM syringe Performing Provider: Solo Abreu MD Performing Location: [facility] Documented (not given) by: Christina Jeff CMA on 03/29/25 10:40 Reason Not Given: Received Previously Coding Level of Care Code Est Pt Level 3 (32570) Add On Problem Visit Only Diagnoses Diabetes type 2 E11.9 Hypertension I10 Class 1 obesity E66.811 Microalbuminuria R80.9 Hyperlipidemia E78.5 Assessment & Plan Assessment & Plan (1) Diabetes type 2: Code(s): E11.9 - Type 2 diabetes mellitus without complications Category: Medical (2) Hypertension: Code(s): I10 - Essential (primary) hypertension Category: Medical (3) Class 1 obesity: Code(s): E66.811 - Obesity, class 1 Category: Medical (4) Microalbuminuria: Code(s): R80.9 - Proteinuria, unspecified Category: Medical (5) Hyperlipidemia: Code(s): E78.5 - Hyperlipidemia, unspecified Category: Medical Plan Consent Patient was informed and verbally consented to the use of an ambient scribe for clinic note documentation during this visit. Plan 1. Type 2 Diabetes Mellitus - Recent non-fasting glucose was 128 mg/dL and hemoglobin A1c was 6.3%, placing the patient in the prediabetes range and indicating good control of her type 2 diabetes. - Continue metformin 500 mg twice daily. - Encouraged tighter control through lifestyle and diet modifications. 2. Microalbuminuria - Urinalysis confirmed the presence of microalbuminuria. - The patient will continue taking lisinopril, which provides renal protection. 3. Hyperlipidemia - Non-fasting LDL was 112 mg/dL, which is likely within an acceptable range once adjusting for the non-fasting state. - No changes to medication are needed at this time. - Focus will be on lifestyle and diet improvements. 4. Follow-Up - Repeat labs and follow up in approximately six months. - The patient has agreed to the plan. Discussion Notes I reviewed the patient's recent lab results with her. I noted her CBC, CMP, and liver function tests were all within normal limits. I explained that her hemoglobin A1c of 6.3% is in the prediabetes range, indicating good control of her type 2 diabetes on her current regimen of metformin 500 mg BID, which we will continue. We discussed her non-fasting LDL of 112, which is acceptable, and agreed to focus on lifestyle and diet for further improvement rather than changing medications. I also pointed out the continued presence of microalbuminuria, and I reassured her that the lisinopril she is taking provides kidney protection. I informed her that her infectious disease screening for syphilis, hepatitis B, hepatitis C, and HIV was negative. We agreed she will repeat labs and return for a follow-up visit in six months, and she can come in sooner if needed. The patient verbalized understanding and agreement with this plan. Patient Instructions - Continue taking your current medications, including metformin 500 mg twice a day and lisinopril, as prescribed. - We do not need to change any of your medications at this time. - Focus on improving your diet and lifestyle to help manage your blood sugar and cholesterol levels. - Your lab results were generally good, but your hemoglobin A1c shows you are in the prediabetes range, which means your diabetes is well-controlled. - Your urine test showed small amounts of protein, but the lisinopril you take helps protect your kidneys. - Please schedule a follow-up appointment in about six months to repeat your lab work and see me again. - If any new issues come up before then, you can schedule an appointment to see me sooner. Medical Decision Making The patient is a 39-year-old female here for a review of her recent laboratory results. Overall, her labs are stable and do not warrant a change in the current management plan. Her hemoglobin A1c of 6.3% indicates she is in the prediabetes range, reflecting good control of her type 2 diabetes on metformin 500 mg BID. The decision was made to continue this dose and encourage tighter glycemic control through lifestyle and diet modifications. The non-fasting LDL of 112 mg/dL is considered acceptable, as it is estimated to be approximately 20-30% lower in a fasting state, placing it within a satisfactory range. Therefore, no lipid-lowering medication adjustments are necessary at this time. Urinalysis confirms persistent microalbuminuria; however, the patient is already on lisinopril for renin-angiotensin system blockade, which provides adequate renal protection, so no changes are needed for this finding. All other metabolic, hematologic, and infectious disease panels were negative or within normal limits. The plan is to continue current management and repeat surveillance labs with a follow-up visit in six months to monitor for any changes. Total Time Statement 20 min Total time spent caring for the patient today includes pre-visit chart review, documentation, review of laboratory and diagnostic imaging results, medication reconciliation, medically necessary evaluation, counseling on diagnoses, care coordination, ordering appropriate tests and medications, review of tests performed by other providers, reporting test results to the patient, and communication with other healthcare providers. Orders: Orders Influenza [id number] Immunization Today Z23 - Encounter for immunization
== END 2025-03-29 11:48 | disposition home or self-care (01) ==
LOC: HO.HMCFMS 10:35
PROVIDERS: Visit Provider Student in an Organized Health Care Education/Training Program
DX: E11.9 Type 2 diabetes mellitus without complications (principal); I10 Essential (primary) hypertension; E66.811 Obesity, class 1; R80.9 Proteinuria, unspecified; E78.5 Hyperlipidemia, unspecified; Z23 Encounter for immunization

== ENCOUNTER → 2025-03-29 10:34 | Outpatient (BNVA) | payer OTHER, SELFPAY | PROVIDERS: Visit Provider Student in an Organized Health Care Education/Training Program | DX: E11.9 Type 2 diabetes mellitus without complications (principal); I10 Essential (primary) hypertension; E66.811 Obesity, class 1; Z68.34 Body mass index [BMI] 34.0-34.9, adult; R80.9 Proteinuria, unspecified; E78.5 Hyperlipidemia, unspecified; Z79.84 Long term (current) use of oral hypoglycemic drugs; Z79.899 Other long term (current) drug therapy; Z13.31 Encounter for screening for depression; Z13.39 Encounter for screening examination for other mental health and behavioral disorders | CPT/HCPCS: 90471; 96127 ==